=== PATIENT | male | born 1945 | race Caucasian/White ===

== ENCOUNTER 2016-07-08 10:07 | Inpatient (IN) | payer MEDICARE ==
[2016-07-08 06:01] LABS: WBC 7.8 K/uL (4.0-10.5)
[2016-07-08 06:02] LABS: HCT 40.8 % (42.0-52.0); HGB 13.9 g/dl (13.2-18.0); MCH 30.5 pg (25.0-31.0); MCHC 34.1 g/dL (32.0-36.0); MCV 89.5 fL (78.0-100.0); PLT 266 K/uL (150-400); RBC 4.56 M/uL (4.70-6.00)
[2016-07-08 06:31] LABS: POTASSIUM 4.1 mmol/L (3.5-5.1)
[2016-07-09 04:58] LABS: HCT 32.1 % (42.0-52.0); HGB 10.6 g/dl (13.2-18.0); MCV 90.9 fL (78.0-100.0); MPV 9.5 fL (6.0-9.5); RBC 3.53 M/uL (4.70-6.00); RDW 13.3 % (11.5-14.0); WBC 10.1 K/uL (4.0-10.5)
[2016-07-09 05:14] LABS: POTASSIUM 4.1 mmol/L (3.5-5.1)
[2016-07-10 05:00] LABS: HCT 30.7 % (42.0-52.0); HGB 10.2 g/dl (13.2-18.0); MCH 29.8 pg (25.0-31.0); MCHC 33.2 g/dL (32.0-36.0); MCV 89.8 fL (78.0-100.0); MPV 9.9 fL (6.0-9.5); RBC 3.42 M/uL (4.70-6.00); RDW 12.9 % (11.5-14.0); WBC 9.8 K/uL (4.0-10.5)
[2016-07-10 05:25] LABS: CREATININE 0.9 mg/dL (0.7-1.2); POTASSIUM 3.8 mmol/L (3.5-5.1)
[2016-07-11 05:01] LABS: HCT 32.2 % (42.0-52.0); HGB 10.9 g/dl (13.2-18.0); MCH 30.3 pg (25.0-31.0); MCHC 33.9 g/dL (32.0-36.0); MCV 89.4 fL (78.0-100.0); MPV 9.5 fL (6.0-9.5); RBC 3.6 M/uL (4.70-6.00); WBC 10.1 K/uL (4.0-10.5)
== END 2016-07-11 14:48 | DRG 470 ==
LOC: FMS 10:07
PROVIDERS: Internal Medicine Cardiovascular Disease; Nurse Practitioner Adult Health; ADMIT Orthopaedic Surgery
PROC: 0SR904A Replacement of Right Hip Joint with Ceramic on Polyethylene Synthetic Substitute, Uncemented, Open Approach (ICD-10-PCS; principal; 2016-07-08 07:00)
DX: M16.11 Unilateral primary osteoarthritis, right hip (principal); E87.1 Hypo-osmolality and hyponatremia; I10 Essential (primary) hypertension; M19.90 Unspecified osteoarthritis, unspecified site; N52.9 Male erectile dysfunction, unspecified; R39.198 Other difficulties with micturition; Z86.010 Personal history of colon polyps; Z88.8 Allergy status to other drugs, medicaments and biological substances
CPT/HCPCS: 36415; 73501; 76000; 80048; 86850; 86900; 86901; 88304; 88311; 94010; 94760; 94762; 97110; 97116; 97161; 97166; 97530; 97530-GP; 97535; C1776; J0131; J0697; J1170; J1885; J2405; J2704; J2795; J3010

== ENCOUNTER 2021-01-01 12:21 | Emergency (ER) | payer MEDICARE ==
[~2021-01-01 12:21] MED LIST: BENTYL10 MG PO; DICLOFENAC SOD100 GM TOP; DICYCLOMINE HCL20 MG PO; FLEXERIL5 MG PO; FLONASE ALLER15.8 ML; HCTZ12.5 MG PO; LEVAQUIN500 MG PO; LISINOPRIL-HCT1 EACH PO; PROTONIX40 MG PO; SPIRIVA 18MCG18 MCG INH; VOLTAREN **OUT50 MG PO
[2021-01-01 13:34] LABS: BASOPHIL 0.7 % (0-2); EOSINOPHIL 0.5 % (0-7); HCT 45.7 % (42.0-52.0); LYMPHOCYTE 14.4 % (15-48); MCH 29.9 pg (25.0-31.0); MCHC 32.8 g/dL (32.0-36.0); MONOCYTE 8.5 % (0-12); MPV 9.6 fL (6.0-9.5); NRBC 0; PLT 282 K/uL (150-400); RBC 5.02 M/uL (4.70-6.00); RDW 13.9 % (11.5-14.0); WBC 9.7 K/uL (4.0-10.5)
[2021-01-01 13:45] LABS: BUN/CREAT RATIO (CALC) 22.8 RATIO; CREATININE 0.92 mg/dL (0.67-1.17); POTASSIUM 4.1 mmol/L (3.5-5.1)
== END 2021-01-01 14:38 | disposition home or self-care (01) ==
LOC: FER 12:21
PROVIDERS: Nurse Practitioner Family
DX: M71.21 Synovial cyst of popliteal space [Baker], right knee (principal); Z86.718 Personal history of other venous thrombosis and embolism; Z91.041 Radiographic dye allergy status
CPT/HCPCS: 36415; 80048; 85025; 93971

== ENCOUNTER 2021-04-03 09:33 | Emergency (ER) | payer MEDICARE ==
[2021-04-03 10:06] LABS: BASOPHIL 0.8 % (0-2); EOSINOPHIL 0.6 % (0-7); HCT 42.5 % (42.0-52.0); LYMPHOCYTE 15.2 % (15-48); MCH 29.8 pg (25.0-31.0); MCHC 32.9 g/dL (32.0-36.0); MCV 90.4 fL (78.0-100.0); MPV 9.4 fL (6.0-9.5); NEUTROPHIL 70.2 % (41-80); NRBC 0; PLT 301 K/uL (150-400); RDW 14.9 % (11.5-14.0); WBC 8.3 K/uL (4.0-10.5)
[2021-04-03 10:20] LABS: BUN/CREAT RATIO (CALC) 20.2 RATIO; CREATININE 0.94 mg/dL (0.67-1.17); POTASSIUM 4.2 mmol/L (3.5-5.1)
== END 2021-04-03 11:31 | disposition home or self-care (01) ==
LOC: FER 09:33
PROVIDERS: Emergency Medicine
DX: R06.00 Dyspnea, unspecified (principal); I10 Essential (primary) hypertension; F17.210 Nicotine dependence, cigarettes, uncomplicated; Z20.822 Contact with and (suspected) exposure to COVID-19
CPT/HCPCS: 36415; 71046; 80048; 84484; 85025; 93005; U0002

== ENCOUNTER 2021-10-31 13:49 | Emergency (ER) | payer MEDICARE ==
[2021-10-31 16:30] LABS: BASOPHIL 0.5 % (0-2); EOSINOPHIL 0.5 % (0-7); HCT 41.7 % (42.0-52.0); HGB 13.8 g/dl (13.2-18.0); LYMPHOCYTE 9.3 % (15-48); MCH 30.2 pg (25.0-31.0); MCHC 33.1 g/dL (32.0-36.0); MCV 91.2 fL (78.0-100.0); MONOCYTE 8.8 % (0-12); MPV 8.7 fL (6.0-9.5); NEUTROPHIL 79.4 % (41-80); NRBC 0; PLT 277 K/uL (150-400); RBC 4.57 M/uL (4.70-6.00); RDW 15.5 % (11.5-14.0); WBC 11.7 K/uL (4.0-10.5)
[2021-10-31 16:50] LABS: INR 0.89 (0.9-1.2); PROTHROMBIN TIME 11.8 SECONDS (11.9-13.9); PTT 26.9 SECONDS (24.9-34.6)
[2021-10-31 16:55] LABS: BUN/CREAT RATIO (CALC) 21.7 RATIO; CREATININE 0.92 mg/dL (0.67-1.17); POTASSIUM 4.4 mmol/L (3.5-5.1)
== END 2021-10-31 20:18 | disposition other institution (70) ==
LOC: FER 13:49
PROVIDERS: Emergency Medicine
DX: I70.212 Atherosclerosis of native arteries of extremities with intermittent claudication, left leg (principal); Z91.041 Radiographic dye allergy status
CPT/HCPCS: 36415; 80048; 85025; 85610; 85730; 93971; J1644

== ENCOUNTER 2021-12-25 16:03 | Emergency (ER) | payer MEDICARE ==
[~2021-12-25] VITALS: Ht 177.8 cm; Wt 84.0 kg
[2021-12-25 18:10] LABS: BASOPHIL 0.4 % (0-2); EOSINOPHIL 0.3 % (0-7); LYMPHOCYTE 6.8 % (15-48); MCH 27.5 pg (25.0-31.0); MCHC 32.4 g/dL (32.0-36.0); MCV 84.9 fL (78.0-100.0); MONOCYTE 7.1 % (0-12); MPV 8.5 fL (6.0-9.5); NEUTROPHIL 83.8 % (41-80); NRBC 0; PLT 326 K/uL (150-400); RBC 4.36 M/uL (4.70-6.00); RDW 14.8 % (11.5-14.0); WBC 15.7 K/uL (4.0-10.5)
[2021-12-25 18:29] LABS: BUN/CREAT RATIO (CALC) 20.7 RATIO; CREATININE 0.87 mg/dL (0.67-1.17); POTASSIUM 3.9 mmol/L (3.5-5.1)
[2021-12-25 19:21] LABS: PROTHROMBIN TIME 12.9 SECONDS (11.9-13.9); PTT 29.1 SECONDS (24.9-34.6)
[2021-12-26 04:13] LABS: INR 1.23 (0.9-1.2); PROTHROMBIN TIME 15.1 SECONDS (11.9-13.9)
[2021-12-26 04:43] LABS: PTT > 180 SECONDS (24.9-34.6)
== END 2021-12-26 07:12 | disposition other institution (70) ==
LOC: FER 16:03
PROVIDERS: Emergency Medicine
DX: I74.3 Embolism and thrombosis of arteries of the lower extremities (principal); I10 Essential (primary) hypertension; I73.9 Peripheral vascular disease, unspecified; Z98.890 Other specified postprocedural states; Z91.048 Other nonmedicinal substance allergy status; Z79.82 Long term (current) use of aspirin; Z79.01 Long term (current) use of anticoagulants; Z79.899 Other long term (current) drug therapy
CPT/HCPCS: 36415; 80048; 85025; 85610; 85730; 93971; J1644; J7030